=== PATIENT | female | born 1945 | race Caucasian/White ===

== ENCOUNTER → 2016-10-22 | Day surgery (SDC) | payer OTHER, MEDICARE ==
[~2016-10-22] VITALS: Ht 160 cm; Wt 105.3 kg
== END | disposition home or self-care (01) ==
LOC: FAS 08:15
DX: Z12.11 Encounter for screening for malignant neoplasm of colon (principal); Z86.010 Personal history of colon polyps; Z87.11 Personal history of peptic ulcer disease; Z90.49 Acquired absence of other specified parts of digestive tract; I10 Essential (primary) hypertension; G47.30 Sleep apnea, unspecified; F32.9 Major depressive disorder, single episode, unspecified; Z91.048 Other nonmedicinal substance allergy status
CPT/HCPCS: J2704

== ENCOUNTER 2021-08-16 20:40 | Emergency (ER) | payer MEDICARE, OTHER ==
[~2021-08-16 20:40] MED LIST: KEFLEX500 MG PO; PYRIDIUM100 MG PO
[2021-08-16 21:28] LABS: BILIRUBIN NEGATIVE (NEGATIVE); BLOOD 3+ Ery/uL (NEGATIVE); COLOR YELLOW (YELLOW); GLUCOSE (U) NORMAL (NORMAL); LEUKOCYTES 2+ Leu/uL (NEGATIVE); NITRITE NEGATIVE (NEGATIVE); PROTEIN NEGATIVE (NEGATIVE); UROBILINOGEN 0.2 mg/dL (0.2-1.0)
[2021-08-16 21:29] LABS: CLARITY HAZY (CLEAR)
[2021-08-16 21:40] LABS: URINARY RBC TNTC; URINARY WBC 20-50
[2021-08-16 21:41] LABS: BACTERIA TRACE; MUCOUS TRACE
[2021-08-16] MEDS ORDERED: CIPRO500 MG PO (22:13)
== END 2021-08-16 22:49 | disposition home or self-care (01) ==
LOC: FER 20:40
PROVIDERS: Nurse Practitioner Family
DX: N39.0 Urinary tract infection, site not specified (principal); I10 Essential (primary) hypertension; E11.9 Type 2 diabetes mellitus without complications
CPT/HCPCS: 81001; J0696